=== PATIENT | male | born 1980 | race American Indian/Alaskan Native ===

== ENCOUNTER 2016-11-17 19:59 | Inpatient (IN) | payer OTHER ==
[2016-11-17 20:04] VITALS: BMI 42.2
[2016-11-17] MEDS ORDERED: Sodium Chloride 0.9% 1,000 ML IV STA (20:55)
[2016-11-17] MEDS ORDERED: Piperacill/Tazo 4.5gm in NS 4.5 GM/100 ML BAG IVPB STA (20:55)
[2016-11-17] MEDS ORDERED: TDAP Vaccine 0.5 mL Syr IM ONE (20:56)
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
[2016-11-17 21:12] LABS: BASO # 0.08 K/mm3 (0.0-2.0); EOS # 0.4 (0.0-0.7); EOS % 4.8 % (1.5-5.0); GRAN # 4.58 (1.4-6.5); GRAN % 59.5 % (50.0-68.0); HEMOGLOBIN 13.8 gm/dL (14.0-18.0); LYMPH # 1.8 (1.2-3.4); LYMPH % 23.3 % (22.0-35.0); MEAN CELL VOLUME 74.6 fL (80.0-105.0); MEAN CORPUSCULAR HEMOGLOBIN 25.7 pg (25.0-35.0); MEAN CORPUSCULAR HGB CONC 34.5 g/dl (31.0-37.0); MEAN PLATELET VOLUME 9.7 fl (7.0-11.0); MONO # 0.9 (0.1-0.6); MONO % 11.4 % (1.0-6.0); PLATELET COUNT 355 10^3/uL (120.0-450.0); RBC 5.36 10^6/uL (3.5-6.1); RED CELL DISTRIBUTION WIDTH 15.3 % (11.5-14.5); WHITE BLOOD COUNT 7.7 10^3/ul (4.5-11.0)
[2016-11-17 21:29] LABS: ALB/GLOB RATIO 1.2 (1.1-1.8); ALBUMIN 3.8 g/dL (3.0-4.8); ALT/SGPT 73 U/L (7-56); AST/SGOT 74 U/L (15-59); BLOOD UREA NITROGEN 9 mg/dL (7-21); CALCIUM 8.8 mg/dL (8.4-10.5); GFR AFRICAN-AMERICAN > 60; GFR NON-AFRICAN AMERICAN > 60
[2016-11-18] MEDS ORDERED: Heparin 25,000units in D5W 25,000 UNITS/250 ML BAG IV SCH (00:50)
[2016-11-18] MEDS ORDERED: Morphine 4 mg/ml ISec IVP SCH (01:00)
[2016-11-18 01:30] LABS: PARTIAL THROMBOPLASTIN TIME 26.8 Seconds (23.7-30.8); PROTHROMBIN TIME 10.8 Seconds (9.9-11.8)
[2016-11-18 02:10] LABS: BASO # 0.06 K/mm3 (0.0-2.0); BASO % 0.8 % (0.0-3.0); EOS # 0.4 (0.0-0.7); EOS % 4.7 % (1.5-5.0); GRAN # 4.68 (1.4-6.5); GRAN % 62.3 % (50.0-68.0); HEMOGLOBIN 13.5 gm/dL (14.0-18.0); LYMPH # 1.8 (1.2-3.4); LYMPH % 23.7 % (22.0-35.0); MEAN CELL VOLUME 74.4 fL (80.0-105.0); MEAN CORPUSCULAR HEMOGLOBIN 25.6 pg (25.0-35.0); MEAN CORPUSCULAR HGB CONC 34.4 g/dl (31.0-37.0); MEAN PLATELET VOLUME 9.4 fl (7.0-11.0); MONO # 0.6 (0.1-0.6); MONO % 8.5 % (1.0-6.0); PLATELET COUNT 334 10^3/uL (120.0-450.0); RBC 5.27 10^6/uL (3.5-6.1); RED CELL DISTRIBUTION WIDTH 15.2 % (11.5-14.5); WHITE BLOOD COUNT 7.5 10^3/ul (4.5-11.0)
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
[2016-11-18] MEDS ORDERED: Morphine 4 mg/ml ISec IVP PRN (03:42)
[2016-11-18] MEDS ORDERED: Vancomycin 1gm in NS 250ml 1 GM/250 ML BAG IVPB SCH ×2 (05:45→08:00)
[2016-11-18] MEDS ORDERED: Piperacillin/Tazobact 3.375 gm 100 ML IVPB SCH (06:00)
[2016-11-18] MEDS: Ampicillin/Sulbactam 3 GM in Sodium Chloride 0.9% 100 ML IVPB SCH ×2 (06:53→22:11)
--- NOTE | 2016-11-18 07:52 | RAD ---
PROCEDURE: Radiographs of the Right Forearm HISTORY: pain r/o fx or FB COMPARISON: None available. TECHNIQUE: Frontal and lateral views obtained. FINDINGS: BONES: No fracture or destructive lesion. JOINT SPACES: Unremarkable. OTHER FINDINGS: Multiple radiopaque foreign bodies are seen in the right forearm. Proximally, they are seen at the level of the skin surface or subcutaneous soft tissues. More distally, there is a foreign body seen in the region of the mid radial diaphysis, in the radial, ventral subcutaneous soft tissues. IMPRESSION: Multiple radiopaque foreign bodies. No evidence fracture.
--- NOTE | 2016-11-18 07:54 | RAD ---
PROCEDURE: Right Ankle Radiographs. HISTORY: pain COMPARISON: None FINDINGS: BONES: Normal. No fracture. JOINTS: Pes planus deformity. Tibiotalar articulation unremarkable. Talar dome smooth. Ankle mortise preserved. SOFT TISSUES: Medial soft tissue swelling. OTHER FINDINGS: None. IMPRESSION: Medial soft tissue swelling. Incidental pes planus deformity.
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
--- NOTE | 2016-11-18 08:36 | US ---
PROCEDURE: Right upper extremity venous US CLINICAL HISTORY: Arm pain and swelling Evaluate for deep venous thrombosis. PHYSICIAN(S): Can Little M.D FINDINGS: The exam is limited by body habitus. There appears to be acute occlusive thrombus noted in right brachial veins above the elbow. The right axillary vein, right subclavian vein, and right internal jugular vein are patent and normal. IMPRESSION: 1. Isolated DVT in the right brachial veins above the elbow.
[2016-11-18 08:43] LABS: BASO # 0.05 K/mm3 (0.0-2.0); BASO % 0.6 % (0.0-3.0); EOS # 0.4 (0.0-0.7); EOS % 5.2 % (1.5-5.0); GRAN # 4.74 (1.4-6.5); GRAN % 57.1 % (50.0-68.0); HEMOGLOBIN 13.6 gm/dL (14.0-18.0); LYMPH # 2.2 (1.2-3.4); LYMPH % 26.3 % (22.0-35.0); MEAN CELL VOLUME 74.6 fL (80.0-105.0); MEAN CORPUSCULAR HEMOGLOBIN 25.4 pg (25.0-35.0); MONO # 0.9 (0.1-0.6); MONO % 10.8 % (1.0-6.0); PLATELET COUNT 362 10^3/uL (120.0-450.0); RBC 5.36 10^6/uL (3.5-6.1); RED CELL DISTRIBUTION WIDTH 15.3 % (11.5-14.5); WHITE BLOOD COUNT 8.3 10^3/ul (4.5-11.0)
[2016-11-18] MEDS: Vancomycin 1gm in NS 250ml 1 GM/250 ML BAG IVPB SCH ×2 (11:13→21:29)
[2016-11-18] MEDS ORDERED: Heparin 25,000units in D5W 25,000 UNITS/250 ML BAG IV PRN (14:07)
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
--- NOTE | 2016-11-18 14:29 | CARD ---
APPROVED REPORT EXAM: Two-dimensional and M-mode echocardiogram with Doppler and color Doppler. INDICATION Leg edema 2D DIMENSIONS Left Atrium (2D)4.2 (1.6-4.0cm)IVSd1.5 (0.7-1.1cm) Aortic Root (2D)3.5 (2.0-3.7cm)LVDd4.6 (3.9-5.9cm) PWd1.4 (0.7-1.1cm)LVDs2.8 (2.5-4.0cm) FS (%) 40.4 %LVEF (%)71.2 (>50%) M-Mode DIMENSIONS Aortic Cusp Exc.2.50 (1.5-2.0cm) Aortic Valve AoV Peak Phdxwtfm109.0cm/Hasmukh Peak GR.8mmHg Mitral Valve MV E Pbppvfli38.4cm/sMV A Eqeekkwi87.4cm/sE/A ratio1.1 TDI Lateral E' Peak V12.50cm/sMedial E' Peak V10.00cm/sE/Lateral E'6.5 E/Medial E'8.1 Pulmonary Valve PV Peak Kxchtlls154.0cm/sPV Peak Grad.6mmHg Tricuspid Valve TR Peak Iqqotgce838do/sRAP [id number] Peak Gr.8mmHg [id number] LEFT VENTRICLE The left ventricle is normal size. There is mild to moderate concentric left ventricular hypertrophy. The left ventricular function is normal.EF-55-60% There is normal LV segmental wall motion. The left ventricular diastolic function is normal. No left ventricle thrombus noted on this study. There is no ventricular septal defect visualized. There is no left ventricular aneurysm. There is no mass noted in the left ventricle. RIGHT VENTRICLE The right ventricle is normal size. There is normal right ventricular wall thickness. The right ventricular systolic function is normal. ATRIA The left atrium is mildly dilated. The right atrium size is normal. The interatrial septum is intact with no evidence for an atrial septal defect. AORTIC VALVE The aortic valve is thickened but opens well. No aortic regurgitation is present. There is no aortic valvular stenosis. There is no aortic valvular vegetation. MITRAL VALVE The mitral valve is thickened but opens well. Mitral regurgitation is trace. There is no mitral valve stenosis. There is no evidence of mitral valve prolapse. TRICUSPID VALVE The tricuspid valve leaflets are thickened , but open well. There is trace tricuspid regurgitation.RVSP-13 mmof hg. There is no tricuspid valve stenosis. There is no tricuspid valve prolapse or vegetation. PULMONIC VALVE The pulmonic valve is not well visualized. GREAT VESSELS The aortic root is normal in size. The ascending aorta is normal in size. The pulmonary artery is normal. The IVC was not visualized. PERICARDIAL EFFUSION There is no pleural effusion. There is no pericardial effusion. <Conclusion> The left ventricle is normal size. There is mild to moderate concentric left ventricular hypertrophy. The left ventricular function is normal.EF-55-60% Mitral regurgitation is trace. There is trace tricuspid regurgitation.RVSP-13 mmof hg. No Vegetation or thrombus noted.
[2016-11-18] MEDS ORDERED: Heparin 25,000units in D5W /250 ML BAG IV PRN (14:51)
[2016-11-19] MEDS ORDERED: Multivitamin With Minerals Tab PO SCH (08:00)
[2016-11-19 08:20] LABS: BASO # 0.05 K/mm3 (0.0-2.0); BASO % 0.7 % (0.0-3.0); EOS # 0.4 (0.0-0.7); GRAN # 4.44 (1.4-6.5); GRAN % 60.5 % (50.0-68.0); HEMOGLOBIN 13.3 gm/dL (14.0-18.0); LYMPH # 1.6 (1.2-3.4); MEAN CELL VOLUME 74.7 fL (80.0-105.0); MEAN CORPUSCULAR HEMOGLOBIN 25.1 pg (25.0-35.0); MEAN CORPUSCULAR HGB CONC 33.7 g/dl (31.0-37.0); MEAN PLATELET VOLUME 9.6 fl (7.0-11.0); MONO # 0.9 (0.1-0.6); MONO % 11.8 % (1.0-6.0); PLATELET COUNT 363 10^3/uL (120.0-450.0); RBC 5.29 10^6/uL (3.5-6.1); RED CELL DISTRIBUTION WIDTH 15.4 % (11.5-14.5); WHITE BLOOD COUNT 7.4 10^3/ul (4.5-11.0)
[2016-11-19 08:28] LABS: INR 1.06 (0.93-1.08); PARTIAL THROMBOPLASTIN TIME 28.1 Seconds (23.7-30.8); PROTHROMBIN TIME 11.5 Seconds (9.9-11.8)
[2016-11-19 08:34] LABS: ALB/GLOB RATIO 1.2 (1.1-1.8); ALBUMIN 3.6 g/dL (3.0-4.8); ALT/SGPT 63 U/L (7-56); AST/SGOT 53 U/L (15-59); BLOOD UREA NITROGEN 12 mg/dL (7-21); CALCIUM 8.5 mg/dL (8.4-10.5); GFR AFRICAN-AMERICAN > 60; GFR NON-AFRICAN AMERICAN > 60
[2016-11-19 09:22] VITALS: BP 131/70; PULSE 71; RESP 22; TEMP 98.3; O2SAT 98
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
[2016-11-19] MEDS: Vancomycin 1gm in NS 250ml 1 GM/250 ML BAG IVPB SCH (10:11)
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
[2016-11-22 03:57] LABS: B2 GLYCOPROTEIN I AB(IGA) <9 SAU (<=20); B2 GLYCOPROTEIN I AB(IGG) <9 SGU (<=20); B2 GLYCOPROTEIN I AB(IGM) <9 SMU (<=20)
[2016-11-22 07:18] LABS: CARDIOLIPIN AB (IGA) <11 APL (<=11); CARDIOLIPIN AB (IGG) <14 GPL (<=14); CARDIOLIPIN AB (IGM) <12 MPL (<=12)
[2016-11-23 06:01] LABS: PHOSPHATIDYLSERINE AB IGA <20 U/mL (<20); PHOSPHATIDYLSERINE AB IGG <10 U/mL (<10); PHOSPHATIDYLSERINE AB IGM <25 U/mL (<25)
== END 2016-11-19 14:03 | disposition home or self-care (01) | DRG 300 ==
LOC: ED 19:59 → ERH 23:50 → 5RSO 11-18 01:46
PROVIDERS: ADMIT Internal Medicine; ATTEND Internal Medicine
DX: I82.621 Acute embolism and thrombosis of deep veins of right upper extremity (principal); L03.116 Cellulitis of left lower limb; Z68.43 Body mass index [BMI] 50.0-59.9, adult; J45.909 Unspecified asthma, uncomplicated; S51.821A Laceration with foreign body of right forearm, initial encounter; E66.01 Morbid (severe) obesity due to excess calories; V29.9XXA Motorcycle rider (driver) (passenger) injured in unspecified traffic accident, initial encounter; Y92.410 Unspecified street and highway as the place of occurrence of the external cause

== ENCOUNTER 2016-11-29 15:49 | Emergency (ER) | payer OTHER ==
[2016-11-29 15:56] VITALS: BMI 39.5
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
[2016-11-29 16:22] VITALS: TEMP 99.5
--- NOTE | 2016-11-29 18:09 | US ---
HISTORY: Leg pain and swelling. Evaluate for DVT PHYSICIAN(S): Can Little MD. TECHNIQUE: Duplex sonography and color-flow Doppler with graded compression were used to evaluate the deep venous systems of both lower extremities. The exam is limited by body habitus and edema. FINDINGS: The visualized deep venous systems of both lower extremities are sonographically normal and compressible. Normal wave forms and augmentation are seen. There is no sonographic evidence for deep venous thrombosis in the visualized segments of both lower extremities. IMPRESSION: No sonographic evidence for deep venous thrombosis in the visualized segments of both lower extremities.
[2016-11-29 19:12] VITALS: BP 124/88; PULSE 84; RESP 16; O2SAT 100
--- NOTE | 2016-11-30 07:53 | RAD ---
PROCEDURE: Left Femur Radiographs. HISTORY: left thigh pain COMPARISON: None. TECHNIQUE: AP and Lateral Radiographs of the left femur. FINDINGS: FEMUR: Bone alignment and mineralization are normal. No acute fracture or bone destruction. SOFT TISSUES: Normal. OTHER FINDINGS: None. IMPRESSION: Normal radiographs of the left femur.
== END 2016-11-29 19:08 | disposition home or self-care (01) ==
LOC: ED 15:49
DX: S86.912A Strain of unspecified muscle(s) and tendon(s) at lower leg level, left leg, initial encounter (principal); X58.XXXA Exposure to other specified factors, initial encounter; Y92.009 Unspecified place in unspecified non-institutional (private) residence as the place of occurrence of the external cause

== ENCOUNTER 2017-04-22 19:59 | Emergency (ER) | payer OTHER ==
[2017-04-22 19:59] VITALS: BMI 39.5
--- NOTE | 2017-04-22 20:40 | ED PDOC ---
Arrival/HPI - General Chief Complaint: Finger,Hand,&Wrist Time Seen by Provider: 04/22/17 20:35 Historian: Patient - History of Present Illness Narrative History of Present Illness (Text): 04/22/17 20:36 37 y/o male, pmh including DVT and PE, nkda, c/o rt. wrist pain x 2 weeks. Pt. stated that he had history of RUE DVT, been having rt. wrist pain for the past 2 weeks with no fall or trauma, no numbness or tinging, aggravated by movement, noted to be tachycardia in the ER 100BPM, no change in vision, no night sweat, no other medical or psychological complaints. Past Medical History - Provider Review Nursing Documentation Reviewed: Yes - Infectious Disease Hx of Infectious Diseases: None - Tetanus Immunization Tetanus Immunization: Up to Date - Cardiac Hx Cardiac Disorders: No - Pulmonary Hx Respiratory Disorders: Yes Hx Asthma: Yes - Neurological Hx Neurological Disorder: No - HEENT Hx HEENT Disorder: No - Renal Hx Renal Disorder: No - Endocrine/Metabolic Hx Endocrine Disorders: No - Hematological/Oncological Other/Comment: R arm DVT - Integumentary Hx Dermatological Disorder: Yes Other/Comment: fungus infection of toe nail - Musculoskeletal/Rheumatological Hx Musculoskeletal Disorders: No - Gastrointestinal Hx Gastrointestinal Disorders: No - Genitourinary/Gynecological Hx Genitourinary Disorders: No - Psychiatric Hx Psychophysiologic Disorder: No Hx Substance Use: No - Anesthesia Hx Anesthesia: No - Suicidal Assessment Feels Threatened In Home Enviroment: No Family/Social History - Physician Review Nursing Documentation Reviewed: Yes Family/Social History: Unknown Family HX Smoking Status: Current Some Days Smoker Hx Alcohol Use: Yes Hx Substance Use: No Allergies/Home Meds Allergies/Adverse Reactions: Allergies shellfish derived Allergy (Verified 04/22/17 20:29) ANAPHYLAXIS Review of Systems - Review of Systems Constitutional: absent: Fatigue, Fevers Eyes: absent: Vision Changes ENT: absent: Hearing Changes Respiratory: absent: SOB, Cough Cardiovascular: absent: Chest Pain Gastrointestinal: absent: Abdominal Pain, Nausea, Vomiting Musculoskeletal: Arthralgias, Myalgias. absent: Back Pain, Neck Pain, Joint Swelling Skin: absent: Rash, Pruritis, Skin Lesions Neurological: absent: Headache, Dizziness Psychiatric: absent: Anxiety, Depression, Suicidal Ideation Physical Exam Vital Signs Reviewed: Yes Vital Signs Temp Pulse Resp BP Pulse Ox 04/22/17 20:25 99.1 F 100 H 18 101/73 95 Temperature: Afebrile Blood Pressure: Normal Pulse: Tachycardic Respiratory Rate: Normal Appearance: Positive for: Well-Appearing, Non-Toxic, Comfortable Pain Distress: Moderate Mental Status: Positive for: Alert and Oriented X 3 - Systems Exam Head: Present: Atraumatic, Normocephalic Pupils: Present: PERRL Extroacular Muscles: Present: EOMI Conjunctiva: Present: Normal Mouth: Present: Moist Mucous Membranes Neck: Present: Normal Range of Motion Respiratory/Chest: Present: Clear to Auscultation, Good Air Exchange. No: Respiratory Distress, Accessory Muscle Use Cardiovascular: Present: Regular Rate and Rhythm, Normal S1, S2. No: Murmurs Abdomen: Present: Normal Bowel Sounds. No: Tenderness, Distention, Peritoneal Signs Back: Present: Normal Inspection Upper Extremity: Present: Normal Inspection, Capillary Refill < 2s, Deformity, Other (RUE: +ttp on the extenson 1st tendon region, no erythematous, no cellulitis, no streaking, no scaphoid tenderness, FROM without limitation, sensation intact, motor 5/5. ). No: Cyanosis, Edema Lower Extremity: Present: Normal Inspection. No: Edema Neurological: Present: GCS=15, Speech Normal, Motor Func Grossly Intact, Gait Normal, Memory Normal Skin: Present: Warm, Dry, Normal Color. No: Rashes Psychiatric: Present: Alert, Oriented x 3, Normal Insight, Normal Concentration Medical Decision Making ED Course and Treatment: 04/22/17 20:48 -Labs -RUE venuous doppler -Rt. wrist xray -Percocet -EKG -Observe and reassess 04/22/17 22:30 -RUE venuous doppler: as per preliminary report, no acute DVT -Rt. wrist xray: no fracture or dislocation -Labs are non-significant -Ddimer within normal limit. -Pain resolved, thumb spica splint applied. -Discharge home with naproxen, thumb spica splint, follow up with your own pmd and orthopedic within 2 days, return to the ER for any new or worsening signs or symptoms. - Lab Interpretations Lab Results: 04/22/17 21:54 04/22/17 21:54 Lab Results 04/22/17 21:54: WBC 7.1, RBC 5.10, Hgb 14.0, Hct 39.7 L, MCV 77.8 L, MCH 27.5, MCHC 35.3, RDW 15.2 H, Plt Count 304, MPV 9.5, Gran % 55.6, Lymph % (Auto) 32.3 , Gilliam % (Auto) 9.5 H, Eos % (Auto) 2.0, Baso % (Auto) 0.6, Gran # 3.93, Lymph # 2.3, Gilliam # 0.7 H, Eos # 0.1, Baso # 0.04 04/22/17 21:54: Sodium 139, Potassium 3.9, Chloride 104, Carbon Dioxide 25, Anion Gap 14, BUN 16, Creatinine 1.1, Est GFR ( Amer) > 60, Est GFR (Non- Af Amer) > 60, Random Glucose 129 H, Calcium 8.9, Magnesium 1.9, Total Bilirubin 0.4, AST 35, ALT 50, Alkaline Phosphatase 79, Total Protein 7.2, Albumin 4.1, Globulin 3.2, Albumin/Globulin Ratio 1.3 04/22/17 21:54: PT 12.0, INR 1.10 H, APTT 28.0, D-Dimer, Quantitative < 200 - RAD Interpretation Radiology Orders: 04/22/17 20:41 WRIST, RIGHT 3 VIEWS [RAD] Stat DUPLEX UPPER EXTRM VEIN RIGHT [US] Stat -Rt. 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 Disposition/Present on Arrival - Present on Arrival Any Indicators Present on Arrival: No History of DVT/PE: Yes History of Uncontrolled Diabetes: No Urinary Catheter: No History of Decub. Ulcer: No History Surgical Site Infection Following: None - Disposition Have Diagnosis and Disposition been Completed?: Yes Diagnosis: Tendinitis, Wrist pain Disposition: HOME/ ROUTINE Disposition Time: 22:32 Patient Plan: Discharge Condition: GOOD Additional Instructions: -Discharge home with naproxen, thumb spica splint, follow up with your own pmd and orthopedic within 2 days, return to the ER for any new or worsening signs or symptoms. Prescriptions: Naproxen 500 mg PO BID PRN #14 tab PRN Reason: Other Referrals: Héctor Armendariz MD [Primary Care Provider] - Follow up with primary Robson Galarza DO [Staff Provider] - Follow up with primary Forms: WORK NOTE
[2017-04-22] MEDS ORDERED: Oxycodone/Acetaminophen 5/325 mg Tab PO STA (20:41)
[2017-04-22 22:01] LABS: BASO # 0.04 K/mm3 (0.0-2.0); BASO % 0.6 % (0.0-3.0); EOS # 0.1 (0.0-0.7); GRAN # 3.93 (1.4-6.5); GRAN % 55.6 % (50.0-68.0); HEMATOCRIT 39.7 % (42.0-52.0); LYMPH # 2.3 (1.2-3.4); LYMPH % 32.3 % (22.0-35.0); MEAN CELL VOLUME 77.8 fl (80.0-105.0); MEAN CORPUSCULAR HEMOGLOBIN 27.5 pg (25.0-35.0); MEAN CORPUSCULAR HGB CONC 35.3 g/dl (31.0-37.0); MEAN PLATELET VOLUME 9.5 fl (7.0-11.0); MONO # 0.7 (0.1-0.6); MONO % 9.5 % (1.0-6.0); RED CELL DISTRIBUTION WIDTH 15.2 % (11.5-14.5); WHITE BLOOD COUNT 7.1 10^3/ul (4.5-11.0)
[2017-04-22 22:06] LABS: ALB/GLOB RATIO 1.3 (1.1-1.8); ALKALINE PHOSPHATASE 79 U/L (38-126); ALT/SGPT 50 U/L (7-56); AST/SGOT 35 U/L (17-59); BILIRUBIN,TOTAL 0.4 mg/dL (0.2-1.3); BLOOD UREA NITROGEN 16 mg/dL (7-21); CALCIUM 8.9 mg/dL (8.4-10.5); CARBON DIOXIDE 25 mmol/L (21-33); CHLORIDE 104 mmol/L (98-107); GFR AFRICAN-AMERICAN > 60; GLUCOSE,RANDOM 129 mg/dL (70-110); MAGNESIUM 1.9 mg/dL (1.7-2.2); POTASSIUM 3.9 mmol/L (3.6-5.0); SODIUM 139 mmol/L (132-148); TOTAL PROTEIN 7.2 g/dL (5.8-8.3)
[2017-04-22 22:22] LABS: D DIMER < 200 ng/mL (0-243)
[2017-04-22 22:43] VITALS: BP 131/75; PULSE 82; RESP 16; TEMP 98.2; O2SAT 100
--- NOTE | 2017-04-23 10:23 | RAD ---
PROCEDURE: Right Wrist Radiographs. HISTORY: rt. wrist pain x 2 weeks COMPARISON: None. 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 This is a normal variation. There is no fracture JOINTS: Normal. No dislocation. SOFT TISSUES: Normal. OTHER FINDINGS: None. IMPRESSION: No evidence of fracture
--- NOTE | 2017-04-23 15:12 | CARD ---
APPROVED REPORT EKG Measurement Heart [id number] <Conclusion> Sinus rhythm with short OR Otherwise normal ECG
--- NOTE | 2017-04-25 10:27 | US ---
PROCEDURE: Right upper extremity venous US CLINICAL HISTORY: Arm pain and swelling Evaluate for deep venous thrombosis. PHYSICIAN(S): Can Little M.D FINDINGS: The exam is somewhat limited by body habitus. The visualized rightinternal jugular vein is sonographically normal and compressible. No evidence of obstruction or thrombus is seen. The visualized segments of the right subclavian vein are patent with normal waveforms. No sonographic evidence of obstruction or thrombosis is seen. The visualized deep venous system of the proximal right upper extremity is sonographically normal and compressible. IMPRESSION: 1. No sonographic evidence for deep venous thrombosis in the visualized segments of the right upper extremity.
== END 2017-04-22 22:55 | disposition home or self-care (01) ==
LOC: ED 19:59
DX: M77.8 Other enthesopathies, not elsewhere classified (principal); M25.531 Pain in right wrist; Z86.718 Personal history of other venous thrombosis and embolism

== ENCOUNTER 2017-06-27 13:05 | Emergency (ER) | payer OTHER ==
[2017-06-27 13:05] VITALS: BMI 39.5
[2017-06-27 13:53] VITALS: RESP 18; TEMP 99.4
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
[2017-06-27 15:31] VITALS: BP 141/78; PULSE 78; O2SAT 99
== END 2017-06-27 15:41 | disposition home or self-care (01) ==
LOC: ED 13:05
DX: M79.674 Pain in right toe(s) (principal); Z51.89 Encounter for other specified aftercare

== ENCOUNTER 2017-09-24 11:48 | Emergency (ER) | payer SELFPAY ==
--- NOTE | 2017-09-24 11:53 | ED PDOC ---
Arrival/HPI - General Historian: Patient <Darron Leos - Last Filed: 09/24/17 12:29> <Jodie Chamorro - Last Filed: 09/24/17 14:48> - General Time Seen by Provider: 09/24/17 11:49 - History of Present Illness Narrative History of Present Illness (Text): 09/24/17 11:52 37 y/o male, pmh including asthma/dvt, nkda, c/o runny nose/cough/congestion x 1 week. pt. stated that he has runny nose, congestion, coughing with no phelgm for approx 1 week, no chest pain or shortness of breath, no night sweat, no dizziness, no palpitation, no other medical or psychological complaints. (Darron Leos) Past Medical History - Provider Review Nursing Documentation Reviewed: Yes - Past History Past History: No Previous - Infectious Disease Hx of Infectious Diseases: None - Tetanus Immunization Tetanus Immunization: Up to Date - Cardiac Hx Cardiac Disorders: No - Pulmonary Hx Respiratory Disorders: Yes Hx Asthma: Yes - Neurological Hx Neurological Disorder: No - HEENT Hx HEENT Disorder: No - Renal Hx Renal Disorder: No - Endocrine/Metabolic Hx Endocrine Disorders: No - Hematological/Oncological Other/Comment: R arm DVT - Integumentary Hx Dermatological Disorder: Yes Other/Comment: fungus infection of toe nail - Musculoskeletal/Rheumatological Hx Musculoskeletal Disorders: No - Gastrointestinal Hx Gastrointestinal Disorders: No - Genitourinary/Gynecological Hx Genitourinary Disorders: No - Psychiatric Hx Psychophysiologic Disorder: No Hx Substance Use: No - Anesthesia Hx Anesthesia: No - Suicidal Assessment Feels Threatened In Home Enviroment: No <Darron eLos - Last Filed: 09/24/17 12:29> Family/Social History - Physician Review Nursing Documentation Reviewed: Yes Family/Social History: Unknown Family HX Smoking Status: Current Some Days Smoker Hx Alcohol Use: Yes Hx Substance Use: No Hx Substance Use Treatment: No <Darron Leos - Last Filed: 09/24/17 12:29> Allergies/Home Meds <Darron Leos - Last Filed: 09/24/17 12:29> <Jodie Chamorro - Last Filed: 09/24/17 14:48> Allergies/Adverse Reactions: Allergies shellfish derived Allergy (Verified 09/24/17 12:02) ANAPHYLAXIS Review of Systems - Review of Systems Constitutional: absent: Fatigue, Fevers Eyes: absent: Vision Changes ENT: Rhinorrhea. absent: Hearing Changes Respiratory: Cough. absent: SOB, Sputum, Wheezing Cardiovascular: absent: Chest Pain Gastrointestinal: absent: Abdominal Pain, Diarrhea, Nausea, Vomiting Musculoskeletal: absent: Arthralgias, Back Pain Skin: absent: Rash, Pruritis Neurological: absent: Headache, Dizziness Psychiatric: absent: Anxiety, Depression, Suicidal Ideation <Darron Leos Q - Last Filed: 09/24/17 12:29> Physical Exam Vital Signs Reviewed: Yes Temperature: Afebrile Blood Pressure: Normal Pulse: Regular Respiratory Rate: Normal Appearance: Positive for: Well-Appearing, Non-Toxic, Comfortable Pain Distress: None Mental Status: Positive for: Alert and Oriented X 3 - Systems Exam Head: Present: Atraumatic, Normocephalic Pupils: Present: PERRL Extroacular Muscles: Present: EOMI Conjunctiva: Present: Normal Ears: Present: NORMAL TM, Normal Canal. No: Erythema Mouth: Present: Moist Mucous Membranes Pharnyx: Present: Normal. No: ERYTHEMA, EXUDATE, TONSILS ENLARGED, Uvular Deviation Nose (External): Present: Atraumatic. No: Abrasion, Contusion, Laceration Nose (Internal): Present: Normal Inspection, No Active Bleeding, Rhinorrhea. No : Septal Hematoma, Epistaxis Neck: Present: Normal Range of Motion, Trachea Midline. No: Lymphadenopathy Respiratory/Chest: Present: Clear to Auscultation, Good Air Exchange, Rhonchi ( RLL). No: Respiratory Distress, Accessory Muscle Use Cardiovascular: Present: Regular Rate and Rhythm, Normal S1, S2. No: Murmurs Abdomen: No: Tenderness, Distention, Peritoneal Signs Back: Present: Normal Inspection Upper Extremity: Present: Normal Inspection. No: Cyanosis, Edema Lower Extremity: Present: Normal Inspection. No: Edema Neurological: Present: GCS=15, CN II-XII Intact, Speech Normal Skin: Present: Warm, Dry, Normal Color. No: Rashes Psychiatric: Present: Alert, Oriented x 3, Normal Insight, Normal Concentration <Darron Leos Q - Last Filed: 09/24/17 12:29> Vital Signs Temp Pulse Resp BP Pulse Ox 09/24/17 12:41 81 18 167/78 H 99 09/24/17 12:02 98.3 F 76 19 140/72 97 Medical Decision Making <Darron Leos - Last Filed: 09/24/17 12:29> <Jodie Chamorro - Last Filed: 09/24/17 14:48> ED Course and Treatment: 09/24/17 12:09 -Duoneb and chest xray -Observe and reassess 09/24/17 12:29 -Pt. feels well, chest xray offered but he declined, stated that he would do the chest xray outpatient. -Discharge home with claritin, prednisone, albuterol, zithromax, follow up with your own pmd and chairman emeritus within 2 days, return to the ER for any new or worsening signs or symptoms. (Darron Leos) - Medication Orders Current Medication Orders: Discontinued Medications Albuterol/Ipratropium (Duoneb 3 Mg/0.5 Mg (3 Ml) Ud) 3 ml IH STAT STA Stop: 09/24/17 12:07 Last Admin: 09/24/17 12:11 Dose: 3 ml - PA / PROFESSOR OF ENGINEERING / Resident Statement / has reviewed & agrees with the documentation as recorded. <Darron Leos - Last Filed: 09/24/17 12:29> - PA / PROFESSOR OF ENGINEERING / Resident Statement / has reviewed & agrees with the documentation as recorded. <Jodie Chamorro - Last Filed: 09/24/17 14:48> Disposition/Present on Arrival - Present on Arrival Any Indicators Present on Arrival: No History of DVT/PE: Yes History of Uncontrolled Diabetes: No Urinary Catheter: No History of Decub. Ulcer: No History Surgical Site Infection Following: None - Disposition Have Diagnosis and Disposition been Completed?: Yes Disposition Time: 12:10 Patient Plan: Discharge <Darron Leos - Last Filed: 09/24/17 12:29> <Jodie Chamorro - Last Filed: 09/24/17 14:48> - Disposition Diagnosis: Bronchitis Disposition: HOME/ ROUTINE Condition: GOOD Additional Instructions: -Discharge home with claritin, prednisone, albuterol, zithromax, flonase, tessalon, follow up with your own pmd and chairman emeritus within 2 days, return to the ER for any new or worsening signs or symptoms. Prescriptions: Albuterol HFA [Ventolin HFA 90 mcg/actuation (8 g)] 2 puff IH [id number] #1 in Azithromycin [Z-Franc] 250 mg PO DAILY #6 tab Benzonatate [Tessalon Perles] 200 mg PO TID PRN #30 sgl PRN Reason: Other Fluticasone Propionate [Flonase] 1 actuation NS DAILY PRN #1 bottle PRN Reason: Other Loratadine [Claritin] 10 mg PO DAILY PRN #14 tab PRN Reason: Other Prednisone 50 mg PO DAILY #5 tablet Referrals: [facility] [place]] - Follow up with primary Forms: WORK NOTE
[2017-09-24] MEDS ORDERED: Albuterol-Ipratrop 3 mg / 0.5 (3 ml) UD IH STA (12:06)
[2017-09-24 12:23] VITALS: TEMP 98.3; BMI 42.8
[2017-09-24 12:44] VITALS: BP 167/78; PULSE 81; RESP 18; O2SAT 99
== END 2017-09-24 12:41 | disposition home or self-care (01) ==
LOC: ED 11:48
DX: J40 Bronchitis, not specified as acute or chronic (principal); F17.210 Nicotine dependence, cigarettes, uncomplicated